=== PATIENT | female | born 1945 | race Caucasian/White ===

== ENCOUNTER 2019-05-18 06:49 | Inpatient (IN) | payer OTHER ==
[2019-05-08 15:02] VITALS: BMI 30.7
[~2019-05-18 06:49] MED LIST: BUPIVICAINE 0.25%/MORPH PF/KETOROLAC - 51ML DISP.SYRINGE IA ONE; TRANEXAMIC ACID 1000 MG/10 ML VIAL IVPB ONE; VANCOMYCIN 1,000 MG VIAL (RESTRICTED TO ID ONLY) IVPB ONE
[2019-05-18] MEDS ORDERED: PANTOPRAZOLE 40 MG TABLET (FP) ONE (07:39)
[2019-05-18] MEDS ORDERED: oxyCODONE HCL 10 MG SUSTAINED ACTING TABLET ONE (07:40)
[2019-05-18] MEDS ORDERED: CELECOXIB 200 MG CAPSULE ONE (07:40)
[2019-05-18] MEDS ORDERED: BUPIVACAINE HCL/PF 0.5% (5 MG/ML) 30 ML VIAL IJ ONE (07:45)
[2019-05-18] MEDS ORDERED: MIDAZOLAM HCL 2 MG/2 ML SINGLE DOSE VIAL ONE (07:45)
[2019-05-18] MEDS ORDERED: EPINEPHrine/PF 1 MG/1 ML (1:1,000) AMPULE ONE (07:45)
[2019-05-18] MEDS: PANTOPRAZOLE 40 MG TABLET (FP) PO ONE (07:50)
[2019-05-18] MEDS: oxyCODONE HCL 10 MG SUSTAINED ACTING TABLET PO ONE (07:50)
[2019-05-18] MEDS: CELECOXIB 200 MG CAPSULE PO ONE (07:50)
[2019-05-18] MEDS ORDERED: CEFAZOLIN 2 GM in DEXTROSE 5%-WATER - 50 ML IVPB ONE (08:00)
[2019-05-18] MEDS ORDERED: ceFAZolin SODIUM 1 GM VIAL ONE (08:09)
[2019-05-18] MEDS ORDERED: VANCOMYCIN 1,000 MG VIAL (RESTRICTED TO ID ONLY) ONE (08:09)
[2019-05-18] MEDS ORDERED: TRANEXAMIC ACID 1000 MG/10 ML VIAL ONE (08:09)
--- NOTE | 2019-05-18 08:11 | HP ---
Admitting History and Physical - Admission Chief Complaint: Right hip osteoarthritis x years History of Present Illness: 74 year old female presents today in regard to her right hip. Longstanding history of right hip osteoarthritis. Patient complains of pain, limited ROM, difficulty ambulating and difficulty completing activities of daily living. Patient has failed conservative treatment options including PO medication, injections, activity modification and exercise programs. At this point, patient would like to proceed with surgical intervention - right total hip arthroplasty , MAKOplasty. History Source: Patient - Past Medical History Cardiovascular: Yes: HTN ...: No Musculoskeletal: Yes: Osteoarthritis ENT: Yes: Other (Hay fever) - Past Surgical History Additional Past Surgical History: See written history & physical. - Smoking History Smoking history: Never smoked Have you smoked in the past 12 months: No - Alcohol/Substance Use Hx Alcohol Use: Yes (SOCIALLY) Home Medications - Allergies Allergies/Adverse Reactions: Allergies Allergy/AdvReac Type Severity Reaction Status Date / Time bupropion [From Wellbutrin] Allergy Severe Hives Verified 05/08/19 14:43 Penicillins Allergy Unknown Verified 05/08/19 14:43 - Home Medications Home Medications: Ambulatory Orders Amlodipine/Valsartan [Exforge 5-320 mg Tablet] 1 tab PO DAILY 05/08/19 Bisoprolol 2.5MG/Hctz 6.25MG [Ziac (Nf)] 1 tab PO DAILY 05/08/19 Celecoxib [Celebrex] 200 mg PO BID 05/08/19 Cetirizine HCl [Zyrtec -] 10 mg PO DAILY 05/08/19 Cyclobenzaprine HCl 10 mg PO HS 05/08/19 Glucosa Mckenna 2Kcl/Chondroitin Mckenna [Glucosamine & Chondroitin Cap] 1 each PO DAILY 05/08/19 Hydrocodone/Acetaminophen [Hydrocodone-Acetamin 5-325 mg] 0.5 tab PO HS Magnesium 200 mg PO DAILY 05/08/19 Turmeric 400 mg PO DAILY 05/08/19 Vitamin B Complex 1 each PO DAILY 05/08/19 Zinc 50 mg PO DAILY 05/08/19 Review of Systems - Review of Systems Musculoskeletal: reports: Decreased ROM (right hip), Joint Pain (right hip) Physical Examination Vital Signs: Vital Signs Temperature 98.1 F 05/18/19 08:03 Pulse Rate 75 05/18/19 08:03 Respiratory Rate 18 05/18/19 08:03 Blood Pressure 152/90 05/18/19 08:03 O2 Sat by Pulse Oximetry (%) 94 L 05/18/19 08:02 Constitutional: Yes: Well Nourished, No Distress Eyes: Yes: Conjunctiva Clear HENT: Yes: Atraumatic Neck: Yes: Supple Cardiovascular: Yes: Regular Rate and Rhythm Respiratory: Yes: Regular Gastrointestinal: Yes: Soft ...Rectal Exam: Yes: Deferred Musculoskeletal: Yes: Joint Stiffness (right hip), Other (Limited ROM right hip) Assessment/Plan 74 year old female presents today in regard to her right hip. Longstanding history of right hip osteoarthritis. Patient complains of pain, limited ROM, difficulty ambulating and difficulty completing activities of daily living. Patient has failed conservative treatment options including PO medication, injections, activity modification and exercise programs. At this point, patient would like to proceed with surgical intervention - right total hip arthroplasty , MAKOplasty. Pros, cons, risks, benefits and alternatives of a right total hip arthroplasty, MAKOplasty was discussed with the patient at length. Patient confirms her understanding and consents to proceed with a right total hip arthroplasty, MAKOplasty.
[2019-05-18] MEDS ORDERED: PROPOFOL 20 ML ONE ×7 (08:38→10:31)
[2019-05-18] MEDS ORDERED: BUPIVACAINE HCL/PF 0.5% (5MG/ML) 10 ML VIAL ONE (08:40)
[2019-05-18] MEDS ORDERED: TRANEXAMIC ACID 1000 MG/10 ML VIAL IVPUSH ONE (09:00)
[2019-05-18] MEDS ORDERED: BUPIVICAINE 0.25%/MORPH PF/KETOROLAC - 51ML DISP.SYRINGE IA ONE ×3 (09:00→11:55)
[2019-05-18] MEDS ORDERED: VANCOMYCIN 1,000 MG VIAL (RESTRICTED TO ID ONLY) IVPB ONE (11:25)
[2019-05-18] MEDS ORDERED: TRANEXAMIC ACID 1000 MG/10 ML VIAL IVPB ONE (11:30)
[2019-05-18] MEDS ORDERED: ACETAMINOPHEN INJECTION 100 ML IVPB ONE (12:03)
[2019-05-18] MEDS ORDERED: KETOROLAC TROMETHAMINE 30 MG/1 ML VIAL ONE (12:03)
[2019-05-18] MEDS ORDERED: traMADol HCL 50 MG TABLET ONE (12:03)
[2019-05-18] MEDS ORDERED: oxyCODONE HCL 5 MG TABLET PO PRN (12:31)
[2019-05-18] MEDS ORDERED: ONDANSETRON 4 MG/2 ML VIAL IVPUSH PRN ×2 (12:31→12:48)
[2019-05-18] MEDS ORDERED: HYDROmorphone HCL CARPU-JECT 1 MG/1 ML DISP.SYRIN IVPUSH PRN (12:31)
[2019-05-18] MEDS ORDERED: ACETAMINOPHEN 1000 MG/100 ML VIAL (NON FORMULARY) IVPB PRN (12:33)
--- NOTE | 2019-05-18 12:39 | OP ---
Operative Note - Note: Operative Date: 05/18/19 Pre-Operative Diagnosis: right hip OA Operation: right ANTHONY MARISA Post-Operative Diagnosis: Same as Pre-op Surgeon: Сергей Murillo Operations Program Manager: Josie Gallardo Anesthesia: Spinal Estimated Blood Loss (mls): 200
[2019-05-18] MEDS ORDERED: LACTATED RINGERS SOLUTION 1,000 ML IV SCH ×2 (12:45→13:00)
[2019-05-18] MEDS ORDERED: ACETAMINOPHEN 1000 MG/100 ML VIAL (NON FORMULARY) IVPB ONE (12:47)
[2019-05-18] MEDS ORDERED: MAG HYDROX/AL HYDROX/SIMETH 30 ML UNIT-DOSE CUP PO PRN (12:48)
[2019-05-18] MEDS ORDERED: MAGNESIUM HYDROX 2400MG/30ML ORAL SUSPENSION 30 ML CUP PO PRN (12:48)
--- NOTE | 2019-05-18 12:52 | SPEC ---
DATE OF OPERATION: 05/18/2019 PREOPERATIVE DIAGNOSIS: Right hip osteoarthritis. POSTOPERATIVE DIAGNOSIS: Right hip osteoarthritis. PROCEDURE: Right total hip replacement with MAKOplasty robotic navigation. ATTENDING: Сергей Murillo MD ENTRY LEVEL BUSINESS ANALYST: CRAIG Marquis ANESTHESIA: Spinal plus sedation. ESTIMATED BLOOD LOSS: 200 mL COMPLICATIONS: None. DISPOSITION: The patient was transferred to the PACU in stable condition. IMPLANTS USED: [place] Accolade II size 7 femoral component, Jewell Trident II 52-mm acetabular component with 30- and 30-mm acetabular screws, MDM bipolar head ball and liner with inner +4 mm offset ceramic head ball. INDICATIONS: This is a 74-year-old female who presented to the office complaining of severe right hip pain. She was seen and examined by Dr. Murillo and diagnosed with severe right hip osteoarthritis. The patient was initially treated conservatively with nonoperative treatments but continued to have severe pain and ambulatory dysfunction. She was, therefore, indicated for a right total hip replacement. The risks, benefits and alternatives to the procedure were explained to the patient in great detail and she elected to proceed with the surgery. DESCRIPTION OF PROCEDURE: On the day of surgery, the patient was taken to the operating room and placed on the OR table. Spinal anesthesia was administered by the anesthesiologist. The patient was then positioned in the lateral decubitus position on the table and all bony prominences were padded. An axillary roll was placed. The operative hip was then prepped and draped in the usual sterile fashion and intravenous antibiotics were given for infection prophylaxis. A surgical time-out was then performed with the team, and the patients identity, procedure, side, availability of implants, and the administration of antibiotics were confirmed. An approximately 15-cm longitudinal incision was made through the skin centered on the greater trochanter of the hip. This dissection was carried down through the subcutaneous tissues to the deep fascia. This fascia was then incised and a Cobra was placed around the inferior femoral neck. Electrocautery was used to reflect the anterior 40% of the gluteus medius and minimus starting at the musculotendinous junction and leaving a cuff for closure. This was reflected to reveal the capsule of the hip joint. An anterior capsulectomy was performed and the femoral head and neck were visualized. Grade 4 changes were noted diffusely throughout the joint. At this point, three small stab incisions were made superior to the main incision along the iliac crest. Three self-drilling Steinmann pins were then placed and the GameCrush pelvic array was attached. Reference points on the limb were then entered into the robotic device and the limb length deficiency, offset, and femoral neck resection level were then calculated by the software. The hip was then dislocated with traction and external rotation. An oscillating saw was used to make the femoral neck cut at the level previously templated, and the femoral head was removed. Attention was then turned to the acetabulum. Retractors were then placed around the acetabulum and the labrum was removed. An acetabular checkpoint pin and the GameCrush software were used to register the contours of the acetabulum. The acetabulum was then reamed in a single stage to the preoperatively templated size using the GameCrush robotic arm. The appropriately sized cup was then impacted and had solid fixation as well as the preset inclination and version of 40 and 20 degrees, respectively. A polyethylene liner was then placed in the cup. Attention was then turned back to the femur, which was externally rotated for improved visualization. A femoral neck elevator was used to present the femoral neck cut, a box osteotome was used to enter the femoral canal, and a canal finder was used to go down the femoral shaft. The ANTHONY broaches were used sequentially until the optimal scratch fit was achieved. This correlated with the preoperatively templated size. From here, several different offset head and neck configurations were tested until excellent stability and length were obtained. These measurements were quantified using the GameCrush software. All trial components were then removed, the femur was copiously irrigated, and the final components were placed. Leg length and stability were checked again and found to be excellent. Irrigation was performed again. Wound closure was started by repairing the abductor muscles with a No. 2 FiberWire stitch in a Krackow configuration passed through bone tunnels in the greater trochanter and tied over a bony bridge. This repair was then reinforced with a 0 V-Loc 180 barbed suture. Next, No. 1 Polysorb and 0 V-Loc 180 were used to close the fascia. The deep subcutaneous tissue was closed with No. 1 Polysorb sutures, and 2-0 Polysorb was used for the superficial subcutaneous tissue. The skin was closed using both 3-0 V-Loc 90 suture in a running subcuticular fashion and SwiftSet skin adhesive. The ANTHONY array and pins were removed from the iliac crest and the stab incision sites were irrigated and closed with 4-0 Polysorb sutures and SwiftSet skin adhesive. Once this was completed, a sterile dressing was applied. The patient was then awakened and taken to the PACU in stable condition. ADDENDUM: After final implants were placed, a 3-minute dilute Betadine lavage was performed. Following this, the wound was thoroughly irrigated with normal saline via pulsatile lavage and wound closure was begun. Genesis BARRIOS/[id number]
[2019-05-18] MEDS ORDERED: KETOROLAC TROMETHAMINE 30 MG/1 ML VIAL IVPUSH SCH ×2 (13:00→14:15)
[2019-05-18] MEDS: traMADol HCL 50 MG TABLET PO SCH ×2 (13:05→20:13)
[2019-05-18] MEDS: LORATADINE 10 MG TABLET PO ONE (13:23)
[2019-05-18] MEDS: CEFAZOLIN 2 GM/D5W 2 GM/50 ML ML IVPB SCH (17:19)
[2019-05-18] MEDS ORDERED: DEXAMETHASONE SOD PHOSPHATE 10 MG/1 ML VIAL IVPB ONE (20:00)
[2019-05-18] MEDS: KETOROLAC TROMETHAMINE 30 MG/1 ML VIAL IVPUSH SCH (20:14)
[2019-05-18] MEDS: GABAPENTIN 300 MG CAPSULE (FP) PO SCH (21:39)
[2019-05-18] MEDS: CELECOXIB 200 MG CAPSULE PO SCH (21:39)
[2019-05-18] MEDS: ASCORBIC ACID 500 MG TABLET (FP) PO SCH (21:39)
[2019-05-18] MEDS: SENNOSIDES/DOCUSATE COMBO (SENNA PLUS) TABLET (UD) PO SCH (21:39)
[2019-05-18] MEDS ORDERED: CYCLOBENZAPRINE HCL 5 MG TABLET PO ONE ×2 (23:00)
[2019-05-19] MEDS: KETOROLAC TROMETHAMINE 30 MG/1 ML VIAL IVPUSH SCH ×2 (02:20→07:46)
[2019-05-19] MEDS: CEFAZOLIN 2 GM/D5W 2 GM/50 ML ML IVPB SCH (02:20)
[2019-05-19] MEDS: traMADol HCL 50 MG TABLET PO SCH ×5 (02:24→20:47)
[2019-05-19] MEDS: LORATADINE 10 MG TABLET PO ONE (07:27)
[2019-05-19] MEDS: PANTOPRAZOLE 40 MG TABLET (FP) PO ONE (07:28)
[2019-05-19] MEDS: CELECOXIB 200 MG CAPSULE PO ONE (07:29)
[2019-05-19] MEDS: oxyCODONE HCL 10 MG SUSTAINED ACTING TABLET PO ONE (07:29)
[2019-05-19] MEDS: ASPIRIN 325 MG TABLET PO SCH (07:45)
[2019-05-19 08:10] LABS: HEMATOCRIT 39.3 % (32.4-45.2); HEMOGLOBIN 12.9 GM/dl (10.7-15.3); MCH 28.5 pg (25.7-33.7); MCHC 32.8 g/dl (32.0-36.0); MEAN CELL VOLUME 87.1 fl (80-96); MEAN PLT VOLUME 8.2 fl (7.5-11.1); PLATELET COUNT 268 K/MM3 (134-434); RBC 4.51 M/mm3 (3.60-5.2); RDW 12.9 % (11.6-15.6)
[2019-05-19 08:15] LABS: CALCIUM 8.6 mg/dl (8.5-10); CREATININE 0.5 mg/dl (0.55-1.3); POTASSIUM 3.7 mmol/L (3.5-5.1)
[2019-05-19] MEDS: LORATADINE 10 MG TABLET PO SCH (09:05)
[2019-05-19] MEDS: MULTIVITAMINS (DAILY MVI) TABLET (FP) PO SCH (09:05)
[2019-05-19] MEDS: CELECOXIB 200 MG CAPSULE PO SCH ×2 (09:05→22:21)
[2019-05-19] MEDS: PANTOPRAZOLE 40 MG TABLET (FP) PO SCH (09:05)
[2019-05-19] MEDS: VALSARTAN 160 MG TABLET (UD) PO SCH (09:05)
[2019-05-19] MEDS: GABAPENTIN 300 MG CAPSULE (FP) PO SCH ×2 (09:05→22:21)
[2019-05-19] MEDS: amLODIPine BESYLATE 5 MG TABLET (FP) PO SCH (09:05)
[2019-05-19] MEDS: SENNOSIDES/DOCUSATE COMBO (SENNA PLUS) TABLET (UD) PO SCH ×2 (09:05→22:21)
[2019-05-19] MEDS: ASCORBIC ACID 500 MG TABLET (FP) PO SCH ×2 (09:06→22:21)
[2019-05-19] MEDS ORDERED: PATIENT'S OWN MEDICATION (NON-FORMULARY) (Cetirizine Hcl 10 MG) PO SCH (10:00)
[2019-05-19] MEDS ORDERED: [UNRECOGNIZED DRUG - OTHER] PO SCH (10:00)
[2019-05-19] MEDS ORDERED: PATIENT'S OWN MEDICATION (NON-FORMULARY) (Amlodipine/Valsartan [Exforge 5-320 Mg Tablet] 1 PO SCH (10:00)
[2019-05-19] MEDS ORDERED: BISOPROLOL PO SCH (10:00)
--- NOTE | 2019-05-19 14:27 | PN ---
Progress Note, Physician Chief Complaint: s/p right total hip replacement under spinal anesthesia History of Present Illness: paravertebral block for post op pain control, post op day one - Current Medication List Current Medications: Active Medications Acetaminophen (Ofirmev Injection -) 1,000 mg IVPB Q6H PRN PRN Reason: PAIN LEVEL 1-5 Last Admin: 05/18/19 12:55 Dose: 1,000 mg Al Hydroxide/Mg Hydroxide (Mylanta Oral Suspension -) 30 ml PO Q4H PRN PRN Reason: DYSPEPSIA Amlodipine Besylate (Norvasc -) 5 mg PO DAILY [facility] Last Admin: 05/19/19 09:05 Dose: 5 mg Ascorbic Acid (Vitamin C -) 500 mg PO BID [facility] Last Admin: 05/19/19 09:06 Dose: 500 mg Aspirin (Asa -) 325 mg PO DAILY@0800 [facility] Last Admin: 05/19/19 07:45 Dose: 325 mg Celecoxib (Celebrex -) 200 mg PO BID [facility] Last Admin: 05/19/19 09:05 Dose: 200 mg Gabapentin (Neurontin -) 300 mg PO BID [facility] Stop: 05/21/19 21:59 Last Admin: 05/19/19 09:05 Dose: 300 mg Hydromorphone HCl (Dilaudid Injection -) 0.25 mg IVPUSH [id number] PRN PRN Reason: PAIN-PACU ORDER X 4 DOSES ONLY Lactated Ringer's (Lactated Ringers Solution) 1,000 mls @ 125 mls/hr IV ASDIR [facility] Last Admin: 05/19/19 07:26 Dose: Not Given Loratadine (Claritin -) 10 mg PO DAILY [facility] Last Admin: 05/19/19 09:05 Dose: 10 mg Magnesium Hydroxide (Milk Of Magnesia -) 30 ml PO PRN PRN PRN Reason: CONSTIPATION Multivitamins/Minerals/Vitamin C (Tab-A-Vit -) 1 tab PO DAILY [facility] Last Admin: 05/19/19 09:05 Dose: 1 tab Non-Formulary Medication (Bisoprolol 2.5mg/Hctz 6.25mg) 1 tab PO DAILY [facility] Ondansetron HCl (Zofran Injection) 4 mg IVPUSH Q6H PRN PRN Reason: NAUSEA Pantoprazole Sodium (Protonix -) 40 mg PO DAILY [facility] Last Admin: 05/19/19 09:05 Dose: 40 mg Senna/Docusate Sodium (Pericolace -) 2 tablet PO BID [facility] Last Admin: 05/19/19 09:05 Dose: 2 tablet Tramadol HCl (Ultram -) 50 mg PO Q6H [facility] Last Admin: 05/19/19 13:19 Dose: 50 mg Valsartan (Diovan -) 320 mg PO DAILY [facility] Last Admin: 05/19/19 09:05 Dose: 320 mg - Objective Vital Signs: Vital Signs Temperature 97.8 F 05/19/19 14:12 Pulse Rate 76 05/19/19 14:12 Respiratory Rate 19 05/19/19 14:12 Blood Pressure 145/64 05/19/19 14:12 O2 Sat by Pulse Oximetry (%) 95 05/19/19 14:12 Constitutional: Yes: Well Nourished Cardiovascular: Yes: WNL Respiratory: Yes: WNL Gastrointestinal: Yes: WNL Labs: CBC, BMP 05/19/19 07:47 05/19/19 07:47 Assessment/Plan No acute anesthetic complications, pain controlled, dept of anesthesiology will sign off care at this time.
--- NOTE | 2019-05-19 15:47 | PATH ---
Surgical Pathology Report Patient Name: ABHINAV REYES Med. Rec. #: [id number] /Age/Gender: 1945 (Age: 74) / F Account: [id number] Location: [facility] MED-SURG Taken: 05/18/2019 Received: 05/18/2019 Reported: 05/19/2019 Physicians: Сергей Murillo M.D. Specimen(s) Received RIGHT FEMORAL HEAD Clinical History Right hip osteoarthritis Final Diagnosis BONE, FEMORAL HEAD, RIGHT, TOTAL HIP REPLACEMENT MAKOPASTY: BONE WITH DEGENERATIVE JOINT DISEASE. Electronically Signed Jeanne Meek M.D. Gross Description Received in formalin, labeled "right femoral head," is a 4.6 x 4.6 x 4.2 cm. femoral head with a 1.3 cm in length portion of femoral neck attached. The margin of resection is smooth. There is a 4.0 cm in greatest dimension area of eburnation present. The remaining articular surface is [place]ledo-yellow and diffusely granular. The underlying trabecular bone is yellow and hard. A member service representative section is submitted in one cassette, following decalcification. /05/18/201905/18/2019
[2019-05-19] MEDS ORDERED: ZOLPIDEM TARTRATE 5 MG TABLET PO PRN (18:12)
--- NOTE | 2019-05-19 20:24 | PN ---
Progress Note (short form) - Note Progress Note: Pt seen and examined. Doing very well. AVSS Selected Entries 05/19/19 14:12 Temperature 97.8 F Pulse Rate 76 Respiratory 19 Rate Blood Pressure 145/64 O2 Sat by Pulse 95 Oximetry (%) Oxygen Delivery Room Air Method Laboratory Tests 05/19/19 05/19/19 07:47 07:47 WBC 10.0 Hgb 12.9 Hct 39.3 Plt Count 268 Sodium 135 L Potassium 3.7 Chloride 102 Carbon Dioxide 23 Anion Gap 10 BUN 12.0 Creatinine 0.5 L Est GFR (CKD-EPI)NonAf 95.34 Random Glucose 161 H Calcium 8.6 Gen: NAD RLE: c/d/i, NVID A/P POD#1 s/p R MARISA PT/OOB - WBAT RLE D/C home in AM
--- NOTE | 2019-05-19 20:34 | DS ---
Physical Examination Vital Signs: Vital Signs Temperature 97.8 F 05/19/19 14:12 Pulse Rate 76 05/19/19 14:12 Respiratory Rate 19 05/19/19 14:12 Blood Pressure 145/64 05/19/19 14:12 O2 Sat by Pulse Oximetry (%) 95 05/19/19 14:12 Labs: CBC, BMP 05/19/19 07:47 05/19/19 07:47 Discharge Summary Problems reviewed: Yes Current Active Problems Osteoarthritis of right hip (Acute) Procedures: Principal: right ANTHONY MARISA Hospital Course: Admitted for elective surgery. Procedure performed without complications. Pt received postoperative antibiotic prophylaxis and DVT ppx. Ambulated with physical therapy. Stable for discharge home with outpatient followup. Condition: Stable - Instructions Diet, Activity, Other Instructions: Dr Murillo - Hip Replacement Instructions Keep the Aquacel dressing on until removed by Dr. Murillo in 10-14 days - it is antibacterial and waterproof and you can shower with it on. Call the office for a follow-up appointment with Dr. Murillo in 10-14 days. Take one Aspirin 325mg daily for 6 weeks to prevent blood clots in your legs. Take one Pantoprazole 40mg daily for 6 weeks to protect against heartburn and ulcers. Take Cephalexin (antibiotic) 3x/day for 10 days to help prevent skin infection. Take Celebrex 200mg twice daily for 30 days to reduce swelling and inflammation. Take a multivitamin, stool softener and extra Vitamin C supplement daily. For pain: *Mild pain (1-3/10): Take 1 Tramadol tablet every 4 hours as needed. Moderate pain (4-6/10): Take 1 Tramadol tablet and 1 Percocet tablet every 4 hours as needed. Severe pain (7-10/10): Take 1 Tramadol tablet and 2 Percocet tablets every 4 hours as needed. Activity: You can put as much weight on the operative leg as you want. For the first 6 weeks, all you need to do is walk around the house, go up/down stairs, and sit down/get up. After 6 weeks when everything is healed (and bone has grown into the implant) you will be sent for more intensive outpatient physical therapy. Always use a walker or cane for balance and to prevent falls. Expect to see swelling / bruising from the operative site all the way down to your toes. Wear the Compression stocking on the operative side during the day to minimize how much swelling there is in your foot/ankle. Don't wear the stocking at night. You don't have to wear the stocking on the other side. Disposition: VNS/HOME HEALTH CARE - Home Medications Comprehensive Discharge Medication List: Ambulatory Orders Amlodipine/Valsartan [Exforge 5-320 mg Tablet] 1 tab PO DAILY 05/08/19 Bisoprolol 2.5MG/Hctz 6.25MG [Ziac 2.5/6.25 mg (Nf) -] 1 tab PO DAILY 05/08/19 Celecoxib [Celebrex] 200 mg PO BID 05/08/19 Cetirizine HCl [Zyrtec -] 10 mg PO DAILY 05/08/19 Cyclobenzaprine HCl 10 mg PO HS 05/08/19 Glucosa Mckenna 2Kcl/Chondroitin Mckenna [Glucosamine & Chondroitin Cap] 1 each PO DAILY 05/08/19 Magnesium 200 mg PO DAILY 05/08/19 Turmeric 400 mg PO DAILY 05/08/19 Vitamin B Complex 1 each PO DAILY 05/08/19 Zinc 50 mg PO DAILY 05/08/19 Amlodipine Besylate [Norvasc -] 5 mg PO DAILY tablet 05/19/19 Ascorbic Acid [Vitamin C -] 500 mg PO BID tablet 05/19/19 Aspirin [ASA -] 325 mg PO DAILY@0800 tablet 05/19/19 Celecoxib [CeleBREX -] 200 mg PO BID #60 capsule 05/19/19 Cephalexin Monohydrate [Keflex -] 500 mg PO TID #30 capsule 05/19/19 Multivitamins [Multivit ([facility] Formulary)] 1 tab PO DAILY tab 05/19/19 Oxycodone HCl/Acetaminophen [Percocet 5-325 mg Tablet] 1 - 2 tab PO Q4H PRN #60 tablet MDD 10 05/19/19 Pantoprazole Sodium [Protonix -] 40 mg PO DAILY #40 tablet.ec 05/19/19 Sennosides/Docusate Sodium [Pericolace -] 2 tablet PO BID tablet 05/19/19 traMADol HCL [Ultram -] 50 mg PO Q4H PRN #42 tablet MDD 6 05/19/19
[2019-05-20] MEDS: traMADol HCL 50 MG TABLET PO SCH ×2 (01:20→08:20)
[2019-05-20] MEDS: ASPIRIN 325 MG TABLET PO SCH (08:20)
[2019-05-20 08:37] LABS: HEMATOCRIT 34.3 % (32.4-45.2); HEMOGLOBIN 11.5 GM/dl (10.7-15.3); MCH 28.8 pg (25.7-33.7); MCHC 33.6 g/dl (32.0-36.0); MEAN CELL VOLUME 85.8 fl (80-96); MEAN PLT VOLUME 8.1 fl (7.5-11.1); PLATELET COUNT 224 K/MM3 (134-434); WHITE BLOOD COUNT 8.5 K/mm3 (4.0-10.8)
[2019-05-20] MEDS: GABAPENTIN 300 MG CAPSULE (FP) PO SCH (09:41)
[2019-05-20] MEDS: CELECOXIB 200 MG CAPSULE PO SCH (09:42)
[2019-05-20] MEDS: VALSARTAN 160 MG TABLET (UD) PO SCH (09:42)
[2019-05-20] MEDS: amLODIPine BESYLATE 5 MG TABLET (FP) PO SCH (09:42)
[2019-05-20] MEDS: LORATADINE 10 MG TABLET PO SCH (09:42)
[2019-05-20] MEDS: PANTOPRAZOLE 40 MG TABLET (FP) PO SCH (09:42)
[2019-05-20] MEDS: ASCORBIC ACID 500 MG TABLET (FP) PO SCH (09:43)
[2019-05-20] MEDS: SENNOSIDES/DOCUSATE COMBO (SENNA PLUS) TABLET (UD) PO SCH (09:43)
[2019-05-20] MEDS: MULTIVITAMINS (DAILY MVI) TABLET (FP) PO SCH (09:43)
[2019-05-20 12:38] VITALS: BP 122/56; PULSE 73; TEMP 97.9
== END 2019-05-20 13:30 | disposition home health service (06) | DRG 470 ==
LOC: FM/S 06:49
PROVIDERS: ADMIT Student in an Organized Health Care Education/Training Program; ATTEND Student in an Organized Health Care Education/Training Program
PROC: 8E0W0CZ Robotic Assisted Procedure of Trunk Region, Open Approach (ICD-10-PCS; 2019-05-18)
PROC: 0SR904Z Replacement of Right Hip Joint with Ceramic on Polyethylene Synthetic Substitute, Open Approach (ICD-10-PCS; principal; 2019-05-18 09:59)
DX: M16.11 Unilateral primary osteoarthritis, right hip (principal); I10 Essential (primary) hypertension
CPT/HCPCS: 36415; 73502-TC-RT-FY; 80048; 85027; 88305-TC; 88311-TC; 94760; 97116-GP; 97163-GP; J0131; J1100

== ENCOUNTER 2020-05-21 13:18 | Emergency (ER) | payer OTHER ==
[2020-05-21 13:40] VITALS: BP 163/66; PULSE 63; TEMP 98.6; BMI 31.9
[2020-05-21 15:23] LABS: EPI CELLS 21 /uL (0-25.1); HYALINE CASTS 1 /uL (0-3.1); PH,URINE 6.5 (5.0-8.0); URINE APPEARANCE CLEAR; URINE BACTERIA 536 /uL (0-1359); URINE BILIRUBIN NEGATIVE (NEGATIVE); URINE COLOR YELLOW; URINE GLUCOSE (UA) NEGATIVE (NEGATIVE); URINE KETONE NEGATIVE (NEGATIVE); URINE LEUK ESTERASE NEGATIVE (NEGATIVE); URINE NITRITE NEGATIVE (NEGATIVE); URINE PROTEIN NEGATIVE (NEGATIVE); URINE RBC 23 /uL (0-23.9); URINE UROBILINOGEN 0.2 mg/dL (0.2-1.0); URINE WBC 6 /uL (0-25.8)
[2020-05-21] MEDS ORDERED: LIDOCAINE 5% TOPICAL PATCH TP ONE (15:29)
[2020-05-21] MEDS ORDERED: LIDOCAINE 5% TOPICAL PATCH ONE (15:46)
[2020-05-22] MEDS ORDERED: LIDOCAINE PATCH REMOVAL MC SCH (04:00)
== END 2020-05-21 16:10 | disposition home or self-care (01) ==
LOC: JER 13:18
DX: M54.5 Low back pain (principal)
CPT/HCPCS: 72100-TC-FY; 81003; 87086; 99284-25

== ENCOUNTER 2020-07-08 04:20 | Day surgery (SDC) | payer OTHER ==
[2020-07-04 14:51] VITALS: BMI 30.7
[2020-07-08] MEDS ORDERED: PROPOFOL 20 ML ONE (09:29)
[2020-07-08] MEDS ORDERED: MIDAZOLAM HCL 2 MG/2 ML SINGLE DOSE VIAL ONE (09:29)
[2020-07-08 11:29] VITALS: BP 123/73; PULSE 59; TEMP 97.5
== END 2020-07-08 12:25 | disposition home or self-care (01) ==
LOC: JASU-SURG 04:20
PROVIDERS: ATTEND Urology
PROC: 0TF4XZZ Fragmentation in Left Kidney Pelvis, External Approach (ICD-10-PCS; principal; 2020-07-08 09:30)
DX: N20.0 Calculus of kidney (principal)

== ENCOUNTER 2020-09-02 05:27 | Day surgery (SDC) | payer OTHER ==
[2020-08-29 18:27] VITALS: BMI 30.7
[2020-09-02] MEDS ORDERED: PROPOFOL 20 ML ONE (10:18)
[2020-09-02] MEDS ORDERED: MIDAZOLAM HCL 2 MG/2 ML SINGLE DOSE VIAL ONE (10:18)
[2020-09-02 12:42] VITALS: BP 171/78; PULSE 62; TEMP 97.3
== END 2020-09-02 13:00 | disposition home or self-care (01) ==
LOC: JASU-SURG 05:27
PROVIDERS: ATTEND Urology
PROC: 0TF4XZZ Fragmentation in Left Kidney Pelvis, External Approach (ICD-10-PCS; principal; 2020-09-02 09:30)
DX: N20.0 Calculus of kidney (principal)

== ENCOUNTER 2022-01-06 04:03 | Day surgery (SDC) | payer OTHER ==
[2022-01-02 13:34] VITALS: BMI 29.0
[2022-01-06] MEDS ORDERED: MIDAZOLAM HCL 2 MG/2 ML SINGLE DOSE VIAL ONE (08:32)
[2022-01-06] MEDS ORDERED: ceFAZolin SODIUM 1 GM VIAL ONE (09:21)
[2022-01-06] MEDS ORDERED: PROPOFOL 20 ML ONE (09:33)
[2022-01-06] MEDS ORDERED: LIDOCAINE HCL/PF 2% SDV 5ML VIAL ONE (09:33)
[2022-01-06 10:24] VITALS: RESP 18
[2022-01-06 11:22] VITALS: BP 124/69; PULSE 58; TEMP 98
== END 2022-01-06 11:10 | disposition home or self-care (01) ==
LOC: JASU-SURG 04:03
PROVIDERS: ATTEND Urology
PROC: 0TF3XZZ Fragmentation in Right Kidney Pelvis, External Approach (ICD-10-PCS; principal; 2022-01-06 09:00)
DX: N20.0 Calculus of kidney (principal)

== ENCOUNTER 2022-06-11 17:21 | Inpatient (IN) | payer OTHER ==
[2022-06-11 17:50] VITALS: BMI 26.6
[2022-06-11] MEDS ORDERED: LACTATED RINGERS SOLUTION 1,000 ML IV STA ×2 (18:26→21:03)
[2022-06-11] MEDS ORDERED: ONDANSETRON 4 MG/2 ML VIAL IVPUSH ONE (18:27)
[2022-06-11] MEDS ORDERED: ACETAMINOPHEN 1000 MG/100 ML BAG IVPB ONE (18:27)
[2022-06-11] MEDS ORDERED: ACETAMINOPHEN INJECTION 100 ML IVPB ONE (19:24)
[2022-06-11] MEDS ORDERED: ONDANSETRON 4 MG/2 ML VIAL ONE (19:24)
[2022-06-11 19:55] LABS: BASO % 0.6 % (0-2.0); EOS % 0.1 % (0-4.5); HEMATOCRIT 40.3 % (32.4-45.2); HEMOGLOBIN 13.1 GM/dL (10.7-15.3); MCH 28.4 pg (25.7-33.7); MCHC 32.5 g/dl (32.0-36.0); MEAN CELL VOLUME 87.4 fl (80-96); MEAN PLT VOLUME 7.2 fl (7.5-11.1); MONO % 9.9 % (3.8-10.2); NEUT % 74.4 % (42.8-82.8); PLATELET COUNT 358 10^3/uL (134-434); RBC 4.61 M/mm3 (3.60-5.2); RDW 14.2 % (11.6-15.6); WHITE BLOOD COUNT 10.8 K/mm3 (4.0-10.0)
[2022-06-11 20:21] LABS: ALBUMIN 3.4 g/dl (3.4-5.0); CALCIUM 8.9 mg/dL (8.5-10.1)
[2022-06-11 20:22] LABS: BLOOD UREA NITROGEN 23.2 mg/dL (7-18)
[2022-06-11 20:24] LABS: CREATININE 0.9 mg/dL (0.55-1.3)
[2022-06-11 20:26] LABS: TOT PROT 6.4 g/dl (6.4-8.2)
[2022-06-11] MEDS ORDERED: LIDOCAINE 5% TOPICAL PATCH TP ONE (21:03)
[2022-06-11] MEDS ORDERED: LIDOCAINE 5% TOPICAL PATCH ONE (21:11)
[2022-06-11] MEDS ORDERED: morphine SULFATE 4 MG/ML VIAL IVPUSH ONE (22:28)
[2022-06-11] MEDS ORDERED: morphine SULFATE 4 MG/ML VIAL ONE (22:36)
[2022-06-11 22:52] LABS: INR 1.21 (0.83-1.09)
[2022-06-11 22:55] LABS: ACTIVATED PTT 27.7 SECONDS (25.2-36.5)
[2022-06-11] MEDS ORDERED: ASPIRIN 81 MG CHEWABLE TABLETS PO ONE (23:58)
[2022-06-12] MEDS ORDERED: ASPIRIN 81 MG CHEWABLE TABLETS ONE (00:09)
[2022-06-12 02:44] LABS: EPI CELLS >36 /uL (0-25.1); HYALINE CASTS 5 /uL (0-3.1); PH,URINE 5.5 (5.0-8.0); URINE APPEARANCE TURBID; URINE BACTERIA 287 /uL (0-1359); URINE BILIRUBIN NEGATIVE (NEGATIVE); URINE COLOR YELLOW; URINE GLUCOSE (UA) NEGATIVE (NEGATIVE); URINE KETONE 1+ (NEGATIVE); URINE LEUK ESTERASE 1+ (NEGATIVE); URINE NITRITE NEGATIVE (NEGATIVE); URINE PROTEIN 1+ (NEGATIVE); URINE UROBILINOGEN 0.2 mg/dL (0.2-1.0); URINE WBC 5826 /uL (0-25.8)
[2022-06-12] MEDS ORDERED: HEPARIN INFUSION - 25,000 UNITS/500 ML INFUS.BAG IVPB ONE (03:10)
[2022-06-12] MEDS: HEPARIN INFUSION - 25,000 UNITS/500 ML INFUS.BAG IVPB SCH (03:36)
[2022-06-12] MEDS ORDERED: AZTREONAM 1 GM in DEXTROSE 5%-WATER - 50 ML IVPB SCH ×2 (03:45→04:00)
[2022-06-12] MEDS ORDERED: MELATONIN 5 MG TABLETS PO ONE (03:57)
[2022-06-12] MEDS ORDERED: ACETAMINOPHEN 1000 MG/100 ML BAG IVPB ONE (03:57)
[2022-06-12 04:01] LABS: URINE RBC 110.5 /uL (0-23.9); YEAST NONE SEEN (NEGATIVE)
[2022-06-12] MEDS ORDERED: ACETAMINOPHEN INJECTION 100 ML IVPB ONE (04:07)
[2022-06-12] MEDS ORDERED: MELATONIN 5 MG TABLETS ONE (04:07)
[2022-06-12] MEDS ORDERED: AZTREONAM 1 GM VIAL (RESTRICTED TO ID) ONE (04:28)
[2022-06-12] MEDS ORDERED: morphine CARPU-JECT 2 MG/1 ML DISP.SYRIN IVPUSH PRN (07:47)
[2022-06-12] MEDS ORDERED: VALSARTAN 80 MG TABLET ONE (08:30)
[2022-06-12 08:58] LABS: BASO % 0.7 % (0-2.0); EOS % 0.3 % (0-4.5); HEMATOCRIT 35.4 % (32.4-45.2); HEMOGLOBIN 11.6 GM/dL (10.7-15.3); LYMPH % 15.1 % (8-40); MCH 28.8 pg (25.7-33.7); MCHC 32.7 g/dl (32.0-36.0); MEAN CELL VOLUME 87.9 fl (80-96); MEAN PLT VOLUME 8.2 fl (7.5-11.1); MONO % 11.2 % (3.8-10.2); NEUT % 72.7 % (42.8-82.8); PLATELET COUNT 266 10^3/uL (134-434); RBC 4.03 M/mm3 (3.60-5.2); RDW 14.4 % (11.6-15.6); WHITE BLOOD COUNT 10.3 K/mm3 (4.0-10.0)
[2022-06-12 09:14] LABS: BLOOD UREA NITROGEN 20.3 mg/dL (7-18); CALCIUM 8.6 mg/dL (8.5-10.1); MAGNESIUM 2.1 mg/dL (1.8-2.4)
[2022-06-12 09:17] LABS: PHOSPHOROUS 3.5 mg/dL (2.5-4.9)
[2022-06-12 09:18] LABS: TOT PROT 5.7 g/dl (6.4-8.2)
[2022-06-12 09:32] LABS: CREATININE 0.8 mg/dL (0.55-1.3)
[2022-06-12] MEDS ORDERED: HEPARIN NA (PORCINE) 5,000 UNITS/ML 1ML VIAL ONE (09:37)
[2022-06-12] MEDS ORDERED: VALSARTAN 160 MG TABLET PO SCH (10:00)
[2022-06-12] MEDS ORDERED: [UNRECOGNIZED DRUG - OTHER] PO SCH (10:00)
[2022-06-12] MEDS ORDERED: BISOPROLOL PO SCH (10:00)
[2022-06-12] MEDS ORDERED: METOPROLOL TARTRATE 25 MG TABLET (FP) ONE ×2 (10:54→22:26)
[2022-06-12] MEDS: METOPROLOL TARTRATE 25 MG TABLET (FP) PO SCH ×2 (10:56→22:18)
[2022-06-12] MEDS ORDERED: PANTOPRAZOLE 40 MG TABLET PO SCH (11:00)
[2022-06-12] MEDS ORDERED: PANTOPRAZOLE 40 MG TABLET PO ONE (11:21)
[2022-06-12 12:24] LABS: BASO % 0.9 % (0-2.0); EOS % 0.4 % (0-4.5); HEMATOCRIT 27.4 % (32.4-45.2); HEMOGLOBIN 8.9 GM/dL (10.7-15.3); LYMPH % 17.8 % (8-40); MCH 28.8 pg (25.7-33.7); MCHC 32.6 g/dl (32.0-36.0); MEAN CELL VOLUME 88.5 fl (80-96); MEAN PLT VOLUME 7.4 fl (7.5-11.1); MONO % 11.1 % (3.8-10.2); NEUT % 69.8 % (42.8-82.8); PLATELET COUNT 273 10^3/uL (134-434); WHITE BLOOD COUNT 7.6 K/mm3 (4.0-10.0)
[2022-06-12] MEDS ORDERED: LACTATED RINGERS SOLUTION 1,000 ML/1,000 ML INFUS.BAG IV SCH (15:45)
[2022-06-12] MEDS ORDERED: CEFTRIAXONE 2 GM/100 ML BAG IVPB ONE (16:14)
[2022-06-12] MEDS: CEFTRIAXONE 2 GM in DEXTROSE 5%-WATER 100 ML IVPB SCH (16:26)
[2022-06-12] MEDS: ASPIRIN 81 MG CHEWABLE TABLETS PO SCH (16:26)
[2022-06-12] MEDS: ATORVASTATIN CA 80 MG TABLET (FP) PO SCH (22:18)
[2022-06-12] MEDS: PANTOPRAZOLE SODIUM 40 MG VIAL IVPUSH SCH (22:18)
[2022-06-12] MEDS ORDERED: PANTOPRAZOLE SODIUM 40 MG VIAL ONE (22:26)
[2022-06-12] MEDS ORDERED: ATORVASTATIN CA 80 MG TABLET (FP) ONE (22:26)
[2022-06-13] MEDS: ZOLPIDEM TARTRATE 5 MG TABLET PO PRN ×2 (00:52→21:06)
[2022-06-13] MEDS: HEPARIN INFUSION - 25,000 UNITS/500 ML INFUS.BAG IVPB SCH (04:20)
[2022-06-13 08:29] LABS: BASO % 0.7 % (0-2.0); EOS % 0.4 % (0-4.5); HEMATOCRIT 37.8 % (32.4-45.2); HEMOGLOBIN 12.4 GM/dL (10.7-15.3); LYMPH % 14.8 % (8-40); MCH 28.8 pg (25.7-33.7); MCHC 32.8 g/dl (32.0-36.0); MEAN CELL VOLUME 87.7 fl (80-96); MEAN PLT VOLUME 7.7 fl (7.5-11.1); MONO % 11.5 % (3.8-10.2); NEUT % 72.6 % (42.8-82.8); PLATELET COUNT 354 10^3/uL (134-434); RBC 4.31 M/mm3 (3.60-5.2); RETICULOCYTES 1.38 % (0.5-1.5); WHITE BLOOD COUNT 9.7 K/mm3 (4.0-10.0)
[2022-06-13 08:33] LABS: INR 1.25 (0.83-1.09); PROTHROMBIN TIME (PATIENT) 14.4 SEC (9.7-13.0)
[2022-06-13 08:36] LABS: ACTIVATED PTT 32.8 SECONDS (25.2-36.5)
[2022-06-13 08:58] LABS: SGPT/ALT 12 U/L (13-61)
[2022-06-13 08:59] LABS: ALBUMIN 3.1 g/dl (3.4-5.0); LIPASE 158 U/L (73-393); SGOT/AST 15 U/L (15-37)
[2022-06-13 09:00] LABS: AMYLASE 41 U/L (25-115); BILIRUBIN,TOTAL 0.8 mg/dL (0.2-1)
[2022-06-13 09:01] LABS: BILIRUBIN,DIRECT 0.2 mg/dL (0.0-0.2)
[2022-06-13 09:02] LABS: ALK PHOS 65 U/L (45-117); IRON SERUM 47 ug/dL (50-175)
[2022-06-13 09:03] LABS: TOTAL IRON BINDING CAPACITY 212 ug/dL (250-450)
[2022-06-13] MEDS: ASPIRIN 81 MG CHEWABLE TABLETS PO SCH (10:45)
[2022-06-13] MEDS: METOPROLOL TARTRATE 25 MG TABLET (FP) PO SCH ×2 (10:45→21:06)
[2022-06-13] MEDS: PANTOPRAZOLE SODIUM 40 MG VIAL IVPUSH SCH ×2 (10:46→21:06)
[2022-06-13] MEDS: CEFTRIAXONE 2 GM in DEXTROSE 5%-WATER 100 ML IVPB SCH (10:46)
[2022-06-13] MEDS: ATORVASTATIN CA 80 MG TABLET (FP) PO SCH (21:06)
[2022-06-14] MEDS: HEPARIN INFUSION - 25,000 UNITS/500 ML INFUS.BAG IVPB SCH (04:00)
[2022-06-14] MEDS ORDERED: oxyCODONE HCL 5 MG TABLET PO PRN (07:54)
[2022-06-14 08:21] LABS: BASO % 0.7 % (0-2.0); EOS % 0.9 % (0-4.5); HEMATOCRIT 35.4 % (32.4-45.2); HEMOGLOBIN 11.8 GM/dL (10.7-15.3); LYMPH % 15.6 % (8-40); MCH 28.9 pg (25.7-33.7); MCHC 33.2 g/dl (32.0-36.0); MONO % 14.4 % (3.8-10.2); NEUT % 68.4 % (42.8-82.8); PLATELET COUNT 336 10^3/uL (134-434); RBC 4.07 M/mm3 (3.60-5.2); RDW 13.8 % (11.6-15.6); WHITE BLOOD COUNT 7.9 K/mm3 (4.0-10.0)
[2022-06-14 08:32] LABS: ALBUMIN 2.9 g/dl (3.4-5.0)
[2022-06-14 08:33] LABS: BILIRUBIN,DIRECT 0.2 mg/dL (0.0-0.2)
[2022-06-14 08:35] LABS: BILIRUBIN,TOTAL 0.9 mg/dL (0.2-1)
[2022-06-14 08:37] LABS: TOT PROT 5.4 g/dl (6.4-8.2)
[2022-06-14] MEDS: METOPROLOL TARTRATE 25 MG TABLET (FP) PO SCH (09:32)
[2022-06-14] MEDS: ASPIRIN 81 MG CHEWABLE TABLETS PO SCH (09:32)
[2022-06-14] MEDS: PANTOPRAZOLE SODIUM 40 MG VIAL IVPUSH SCH (09:33)
[2022-06-14] MEDS ORDERED: LIDOCAINE 5% TOPICAL PATCH TP SCH (10:00)
[2022-06-14] MEDS ORDERED: CYCLOBENZAPRINE HCL 5 MG TABLET PO SCH (14:00)
[2022-06-14] MEDS ORDERED: LIDOCAINE PATCH REMOVAL MC SCH (22:00)
[2022-06-14 22:40] VITALS: BP 134/80; PULSE 75; RESP 20; TEMP 98.3
== END 2022-06-14 22:00 | disposition short-term general hospital (02) | DRG 281 ==
LOC: JER 17:21 → JERBED 06-12 00:52 → J4W 06-12 23:23
PROVIDERS: ADMIT Internal Medicine; ATTEND Internal Medicine
DX: I21.4 Non-ST elevation (NSTEMI) myocardial infarction (principal); I50.20 Unspecified systolic (congestive) heart failure; N39.0 Urinary tract infection, site not specified; M48.54XA Collapsed vertebra, not elsewhere classified, thoracic region, initial encounter for fracture; G89.29 Other chronic pain; G47.00 Insomnia, unspecified; D64.9 Anemia, unspecified; R63.0 Anorexia; Z68.26 Body mass index [BMI] 26.0-26.9, adult; Z96.641 Presence of right artificial hip joint; K80.20 Calculus of gallbladder without cholecystitis without obstruction; N20.0 Calculus of kidney; I11.0 Hypertensive heart disease with heart failure; K57.90 Diverticulosis of intestine, part unspecified, without perforation or abscess without bleeding; R10.13 Epigastric pain; Z88.0 Allergy status to penicillin
CPT/HCPCS: 0241U-QW; 36415; 71045-TC-FY; 71275-TC; 74174-TC; 76705-TC; 80053; 80061; 80076; 81003; 82150; 82272; 82550; 82728; 82962; 83036; 83540; 83550; 83605; 83690; 83735; 84100; 84443; 84484; 85025; 85045; 85610; 85730; 86140; 86850; 86900; 86901; 87040; 87086; 93005; 93010; 93306-TC; 99285-25; C9803-CS; J1644; Q9967; U0003; U0005

== ENCOUNTER 2022-06-21 20:00 | Inpatient (IN) | payer OTHER ==
[2022-06-21] MEDS ORDERED: MELATONIN 5 MG TABLETS PO PRN (23:37)
[2022-06-21] MEDS ORDERED: SIMETHICONE 80 MG TAB.CHEW (FP) PO PRN (23:37)
[2022-06-21] MEDS ORDERED: DOCUSATE SODIUM 100 MG CAPSULE (FP) PO PRN (23:53)
[2022-06-21] MEDS ORDERED: ACETAMINOPHEN 1000 MG/100 ML BAG IVPB ONE (23:58)
[2022-06-22] MEDS ORDERED: ZOLPIDEM TARTRATE 5 MG TABLET PO PRN (00:08)
[2022-06-22] MEDS: traMADol HCL 50 MG TABLET PO PRN ×4 (01:13→22:49)
[2022-06-22] MEDS: APIXABAN 5 MG TABLET PO SCH ×3 (01:14→22:49)
[2022-06-22] MEDS: SACUBITRIL/VALSARTAN 24 MG-26 MG TABLET PO SCH ×3 (01:14→22:49)
[2022-06-22] MEDS: ZOLPIDEM TARTRATE 5 MG TABLET PO PRN ×2 (01:14→22:49)
[2022-06-22] MEDS: PANTOPRAZOLE 40 MG TABLET PO SCH (09:59)
[2022-06-22 11:30] LABS: BASO % 0.7 % (0-2.0); EOS % 0.6 % (0-4.5); HEMATOCRIT 40.9 % (32.4-45.2); HEMOGLOBIN 13.5 GM/dL (10.7-15.3); MCH 28.9 pg (25.7-33.7); MEAN CELL VOLUME 87.6 fl (80-96); MEAN PLT VOLUME 7.9 fl (7.5-11.1); NEUT % 68.7 % (42.8-82.8); PLATELET COUNT 448 10^3/uL (134-434); RBC 4.66 M/mm3 (3.60-5.2); RDW 14.6 % (11.6-15.6)
[2022-06-22 11:36] LABS: INR 1.75 (0.83-1.09); PROTHROMBIN TIME (PATIENT) 20.2 SEC (9.7-13.0)
[2022-06-22 11:39] LABS: ACTIVATED PTT 35.8 SECONDS (25.2-36.5)
[2022-06-22 12:20] LABS: CALCIUM 9.3 mg/dL (8.5-10.1)
[2022-06-22 12:21] LABS: BLOOD UREA NITROGEN 9.6 mg/dL (7-18)
[2022-06-22 12:24] LABS: PHOSPHOROUS 3.6 mg/dL (2.5-4.9)
[2022-06-22] MEDS: ATORVASTATIN CA 80 MG TABLET (FP) PO SCH (22:49)
[2022-06-22] MEDS: POLYETHYLENE GLYCOL (HEALTHYLAX) 3350 17 GM PACKET PO SCH (22:50)
[2022-06-23] MEDS: POLYETHYLENE GLYCOL (HEALTHYLAX) 3350 17 GM PACKET PO SCH ×2 (10:51→21:29)
[2022-06-23] MEDS: SACUBITRIL/VALSARTAN 24 MG-26 MG TABLET PO SCH ×2 (10:52→21:29)
[2022-06-23] MEDS: APIXABAN 5 MG TABLET PO SCH ×2 (10:52→21:29)
[2022-06-23] MEDS: traMADol HCL 50 MG TABLET PO PRN ×2 (10:52→21:28)
[2022-06-23] MEDS: PANTOPRAZOLE 40 MG TABLET PO SCH (10:53)
[2022-06-23] MEDS: BACLOFEN 10 MG TABLET (FP) PO PRN ×2 (11:42→18:08)
[2022-06-23 15:52] VITALS: BMI 28.3
[2022-06-23] MEDS: ZOLPIDEM TARTRATE 5 MG TABLET PO PRN (21:28)
[2022-06-23] MEDS: ATORVASTATIN CA 80 MG TABLET (FP) PO SCH (21:29)
[2022-06-24] MEDS: SACUBITRIL/VALSARTAN 24 MG-26 MG TABLET PO SCH (10:22)
[2022-06-24] MEDS: POLYETHYLENE GLYCOL (HEALTHYLAX) 3350 17 GM PACKET PO SCH (10:22)
[2022-06-24] MEDS: PANTOPRAZOLE 40 MG TABLET PO SCH (10:22)
[2022-06-24] MEDS: APIXABAN 5 MG TABLET PO SCH (10:22)
[2022-06-24] MEDS: traMADol HCL 50 MG TABLET PO PRN ×2 (10:33→16:29)
[2022-06-24] MEDS: BACLOFEN 10 MG TABLET (FP) PO PRN ×2 (10:34→16:29)
[2022-06-24 15:01] VITALS: BP 108/65; PULSE 65; RESP 18; TEMP 98.2
== END 2022-06-24 17:00 | disposition home or self-care (01) | DRG 280 ==
LOC: J5S 20:00
PROVIDERS: ADMIT Internal Medicine; ATTEND Internal Medicine
DX: I51.81 Takotsubo syndrome (principal); U07.1 COVID-19; I21.4 Non-ST elevation (NSTEMI) myocardial infarction; I21.A1 Myocardial infarction type 2; I50.22 Chronic systolic (congestive) heart failure; M48.56XA Collapsed vertebra, not elsewhere classified, lumbar region, initial encounter for fracture; K86.2 Cyst of pancreas; M54.50 Low back pain, unspecified; I11.0 Hypertensive heart disease with heart failure; I48.0 Paroxysmal atrial fibrillation; I25.10 Atherosclerotic heart disease of native coronary artery without angina pectoris; K80.20 Calculus of gallbladder without cholecystitis without obstruction; K83.8 Other specified diseases of biliary tract; M54.6 Pain in thoracic spine; Z80.0 Family history of malignant neoplasm of digestive organs
CPT/HCPCS: 36415; 74181-TC; 80048; 82962; 83735; 84100; 85025; 85610; 85730; 97116-GP; 97161-GP; C9803-CS; J0475; U0003; U0005

== ENCOUNTER 2024-12-13 16:18 | Inpatient (IN) | payer OTHER ==
[2024-12-13 17:03] VITALS: BMI 24.0
[2024-12-13 18:33] LABS: ABSOLUTE IMMATURE GRANULOCYTES 0.03 x10^3/uL (0.0-0.031); BASOPHILS # 0.04 x10^3/uL (0.01-0.08); EOSINOPHIL % 0.7 % (0.7-5.8); EOSINOPHILS # 0.05 x10^3/uL (0.04-0.36); MCHC 32.6 g/dl (32.2-35.5); MEAN CELL VOLUME 86.2 fl (79.4-94.8); MEAN PLT VOLUME 10.6 fl (9.4-12.3); MONOCYTE # 0.76 x10^3/uL (0.24-0.86); MONOCYTE % 11.3 % (4.7-12.5); RDW 14.6 % (12.4-16.6)
[2024-12-13 19:00] LABS: CO2 28.0 mmol/L (21-32); GLUCOSE,RANDOM 103.0 mg/dL (74-106)
[2024-12-13 19:03] LABS: CREATININE 0.5 mg/dL (0.55-1.3); SGOT/AST 50.0 U/L (15-37); SGPT/ALT 17.0 U/L (13-61)
[2024-12-13 19:04] LABS: TOT PROT 6.2 g/dl (6.4-8.2)
[2024-12-13 19:06] LABS: ALK PHOS 62.0 U/L (45-117)
[2024-12-13 19:54] LABS: HIV INTERPRETATION NEGATIVE (NEGATIVE)
[2024-12-13 19:55] LABS: HCV DIAGNOSTIC IN-HOUSE W/RFLX NON-REACTIVE (NONREACTIVE)
[2024-12-13] MEDS ORDERED: ACETAMINOPHEN 325 MG TABLET (FP) ONE (20:13)
[2024-12-13] MEDS ORDERED: LIDOCAINE 5% TOPICAL PATCH ONE (20:13)
[2024-12-13] MEDS: ACETAMINOPHEN 500 MG TABLET (FP) PO ONE (20:20)
[2024-12-13] MEDS: LIDOCAINE 5% TOPICAL PATCH TP ONE (20:20)
[2024-12-13 20:26] LABS: INR 1.72 (0.83-1.09); PROTHROMBIN TIME (PATIENT) 18.8 SEC (9.7-13.0)
[2024-12-13 20:29] LABS: ACTIVATED PTT 31.3 SECONDS (25.2-36.5)
[2024-12-13 21:10] LABS: GLUCOSE,RANDOM 96.0 mg/dL (74-106)
[2024-12-13 21:11] LABS: CO2 29.0 mmol/L (21-32)
[2024-12-13 21:14] LABS: CREATININE 0.4 mg/dL (0.55-1.3); SGOT/AST 22.0 U/L (15-37); SGPT/ALT 13.0 U/L (13-61)
[2024-12-13 21:15] LABS: TOT PROT 5.7 g/dl (6.4-8.2)
[2024-12-13 21:17] LABS: ALK PHOS 59.0 U/L (45-117)
[2024-12-13] MEDS: LIDOCAINE PATCH REMOVAL MC SCH (22:04)
[2024-12-14] MEDS ORDERED: ACETAMINOPHEN 325 MG TABLET (FP) PO PRN (00:10)
[2024-12-14] MEDS: MELATONIN 5 MG TABLETS PO PRN (00:24)
[2024-12-14 07:54] LABS: ABSOLUTE IMMATURE GRANULOCYTES 0.03 x10^3/uL (0.0-0.031); BASOPHILS # 0.03 x10^3/uL (0.01-0.08); EOSINOPHIL % 1.0 % (0.7-5.8); EOSINOPHILS # 0.06 x10^3/uL (0.04-0.36); MCHC 32.7 g/dl (32.2-35.5); MEAN CELL VOLUME 85.7 fl (79.4-94.8); MEAN PLT VOLUME 9.3 fl (9.4-12.3); MONOCYTE # 0.80 x10^3/uL (0.24-0.86); MONOCYTE % 13.9 % (4.7-12.5); RDW 14.3 % (12.4-16.6)
[2024-12-14 08:22] LABS: CO2 28 mmol/L (21-32); GLUCOSE,RANDOM 88 mg/dL (74-106)
[2024-12-14 08:25] LABS: CREATININE 0.4 mg/dL (0.55-1.3); SGPT/ALT 11 U/L (13-61)
[2024-12-14 08:26] LABS: SGOT/AST 11 U/L (15-37)
[2024-12-14 08:27] LABS: TOT PROT 5.4 g/dl (6.4-8.2)
[2024-12-14 08:28] LABS: ALK PHOS 59 U/L (45-117)
[2024-12-14] MEDS: ACETAMINOPHEN 325 MG TABLET (FP) PO SCH (08:42)
[2024-12-14] MEDS: LIDOCAINE 5% TOPICAL PATCH TP SCH (08:42)
[2024-12-14] MEDS: APIXABAN 5 MG TABLET PO SCH (09:21)
[2024-12-14] MEDS: SACUBITRIL/VALSARTAN 24 MG-26 MG TABLET PO SCH (09:21)
[2024-12-14] MEDS: MAGNESIUM 2GM/50ML STERILE WATER IVPB IVPB ONE (09:22)
[2024-12-14] MEDS: KCL 10 MEQ IVPB 10 MEQ/100 ML INFUS.BAG IVPB SCH (11:05)
[2024-12-14] MEDS: POTASSIUM CHLORIDE ORAL LIQUID 20 MEQ/15 ML PO ONE (11:05)
[2024-12-14] MEDS: POLYETHYLENE GLYCOL (HEALTHYLAX) 3350 17 GM PACKET PO SCH (12:02)
[2024-12-14] MEDS: CELECOXIB 200 MG CAPSULE PO ONE (13:17)
[2024-12-14] MEDS: hydrOXYzine PAMOATE 25 MG CAPSULE (FP) PO ONE (18:46)
[2024-12-14] MEDS: LIDOCAINE PATCH REMOVAL MC SCH (21:25)
[2024-12-14] MEDS ORDERED: CARVEDILOL 3.125 MG TABLET (FP) PO SCH (22:00)
[2024-12-14] MEDS: CARVEDILOL 3.125 MG TABLET (FP) PO SCH (22:00)
[2024-12-14] MEDS: CELECOXIB 200 MG CAPSULE PO SCH (22:00)
[2024-12-15 08:46] LABS: ABSOLUTE IMMATURE GRANULOCYTES 0.05 x10^3/uL (0.0-0.031); BASOPHILS # 0.03 x10^3/uL (0.01-0.08); EOSINOPHIL % 1.2 % (0.7-5.8); EOSINOPHILS # 0.09 x10^3/uL (0.04-0.36); MCHC 33.7 g/dl (32.2-35.5); MEAN CELL VOLUME 84.1 fl (79.4-94.8); MEAN PLT VOLUME 9.6 fl (9.4-12.3); MONOCYTE # 0.87 x10^3/uL (0.24-0.86); MONOCYTE % 11.9 % (4.7-12.5); RDW 13.9 % (12.4-16.6)
[2024-12-15] MEDS ORDERED: CARVEDILOL 3.125 MG TABLET (FP) PO SCH (10:00)
[2024-12-15 10:06] LABS: CO2 26.0 mmol/L (21-32); GLUCOSE,RANDOM 89.0 mg/dL (74-106)
[2024-12-15 10:09] LABS: CREATININE 0.3 mg/dL (0.55-1.3)
[2024-12-15] MEDS: POTASSIUM CHLORIDE TABS 20 MEQ TABLET.ER (FP) PO ONE (11:42)
[2024-12-15] MEDS: POTASSIUM CHLORIDE ORAL LIQUID 20 MEQ/15 ML PO ONE (11:43)
[2024-12-15] MEDS ORDERED: guaiFENesin 600 MG TABLET.ER (FP) PO SCH (22:49)
[2024-12-15] MEDS: guaiFENesin 600 MG TABLET.ER (FP) PO SCH (22:59)
[2024-12-15] MEDS: hydrOXYzine PAMOATE 25 MG CAPSULE (FP) PO ONE (22:59)
[2024-12-16] MEDS: guaiFENesin 600 MG TABLET.ER (FP) PO ONE (03:26)
[2024-12-16 08:29] LABS: ABSOLUTE IMMATURE GRANULOCYTES 0.04 x10^3/uL (0.0-0.031); BASOPHILS # 0.04 x10^3/uL (0.01-0.08); EOSINOPHIL % 0.7 % (0.7-5.8); EOSINOPHILS # 0.05 x10^3/uL (0.04-0.36); MCHC 32.8 g/dl (32.2-35.5); MEAN CELL VOLUME 86.2 fl (79.4-94.8); MEAN PLT VOLUME 9.4 fl (9.4-12.3); MONOCYTE # 0.72 x10^3/uL (0.24-0.86); MONOCYTE % 10.7 % (4.7-12.5); RDW 14.3 % (12.4-16.6)
[2024-12-16 09:04] LABS: CO2 31.0 mmol/L (21-32); GLUCOSE,RANDOM 96.0 mg/dL (74-106)
[2024-12-16 09:07] LABS: CREATININE 0.5 mg/dL (0.55-1.3); SGOT/AST 12.0 U/L (15-37); SGPT/ALT 14.0 U/L (13-61)
[2024-12-16 09:10] LABS: TOT PROT 6.2 g/dl (6.4-8.2)
[2024-12-16 09:11] LABS: ALK PHOS 78.0 U/L (45-117)
[2024-12-16 15:02] VITALS: RESP 18
[2024-12-16] MEDS: ZOLPIDEM TARTRATE 5 MG TABLET PO ONE (21:35)
[2024-12-17] MEDS: CARVEDILOL 3.125 MG TABLET (FP) PO ONE (11:48)
[2024-12-17] MEDS: CARVEDILOL 6.25 MG TABLET (FP) PO SCH (14:55)
[2024-12-17] MEDS: hydrOXYzine PAMOATE 25 MG CAPSULE (FP) PO ONE (21:51)
[2024-12-17 22:02] VITALS: TEMP 98.1
[2024-12-18 04:58] VITALS: BP 170/76; PULSE 60
== END 2024-12-18 16:00 | DRG 552 ==
LOC: JER 16:18 → JERBED 20:19 → J6S 22:49
PROVIDERS: ADMIT Student in an Organized Health Care Education/Training Program; ATTEND Internal Medicine
DX: S22.089A Unspecified fracture of T11-T12 vertebra, initial encounter for closed fracture (principal); I50.22 Chronic systolic (congestive) heart failure; I48.0 Paroxysmal atrial fibrillation; I11.0 Hypertensive heart disease with heart failure; I25.10 Atherosclerotic heart disease of native coronary artery without angina pectoris; G89.29 Other chronic pain; W05.1XXA Fall from non-moving nonmotorized scooter, initial encounter; Y93.89 Activity, other specified; Y92.89 Other specified places as the place of occurrence of the external cause; Y99.8 Other external cause status
CPT/HCPCS: 36415; 71045-TC-FY; 72131-TC; 72192-TC; 73610-TC-LT-FY; 73630-TC-LT; 74177-TC; 80048; 80053; 83735; 84100; 84484; 85025; 85610; 85730; 86803; 86850; 86900; 86901; 87389; 93005; 93010; 97116-GP; 99285-25; Q9967